=== PATIENT | female | born 1940 | race Caucasian/White ===

== ENCOUNTER 2018-07-05 11:44 | Outpatient (CLI) | payer MEDICARE, BC | END 2018-07-05 11:45 | disposition home or self-care (01) | LOC: BICRAD 11:44 | PROVIDERS: ATTEND Family Medicine | DX: I13.10 Hypertensive heart and chronic kidney disease without heart failure, with stage 1 through stage 4 chronic kidney disease, or unspecified chronic kidney disease (principal); E11.22 Type 2 diabetes mellitus with diabetic chronic kidney disease; N18.3 Chronic kidney disease, stage 3 (moderate); D63.1 Anemia in chronic kidney disease; I25.10 Atherosclerotic heart disease of native coronary artery without angina pectoris; E78.5 Hyperlipidemia, unspecified; N39.0 Urinary tract infection, site not specified; M13.811 Other specified arthritis, right shoulder; M75.91 Shoulder lesion, unspecified, right shoulder ==

== ENCOUNTER 2020-03-08 13:31 | Inpatient (IN) | payer MEDICARE, BC ==
[~2020-03-08 13:31] MED LIST: Lidocaine 1% PF 5 ML VIAL ONE; Ondansetron PF 4 MG/2 ML Vial ONE; PROPOFOL 200 MG/20 ML VIAL ONE
[2020-03-08] MEDS ORDERED: Cefepime 2 GM VIAL ONE (14:10)
--- NOTE | 2020-03-08 14:14 | RAD ---
EXAM: Portable chest PROVIDED CLINICAL HISTORY: Fever COMPARISON: 05/21/2015 FINDINGS: Heart appears mildly enlarged. Median sternotomy changes are seen. No focal consolidation, pleural fl uid or pneumothorax evident. IMPRESSION: No evidence for an acute cardiopulmonary process.
[2020-03-08] MEDS ORDERED: Vancomycin HCl 1.75 GM in Sodium Chloride 0.9% 500 ML IVPB SCH (14:15)
[2020-03-08 14:16] LABS: #Lymphocytes 0.3 thou/uL (1.20-3.40); #Monocytes 0.5 thou/uL (0.11-0.59); #Neutrophils 4.8 thou/uL (1.40-6.50); %Basophils 0.1 % (0.0-1.0); %Eosinophils 0.4 % (0.0-10.0); %Lymphocytes 5.8 % (21.0-51.0); %Monocytes 8.4 % (0.0-10.0); %Neutrophils 85.3 % (42.0-75.0); Hemoglobin 9.9 g/dL (12.0-16.0); Mean Corpuscular HGB CONC 34.3 g/dL (32.0-36.0); Mean Corpuscular Hemoglobin 33.6 pg (27.0-31.0); Mean Corpuscular Volume 97.8 fL (78.0-98.0); Mean Platelet Volume 8.9 fL (7.4-10.4); Platelet Count 33 thou/uL (130-400); RBC Distribution Width 13.6 % (11.5-14.5); Red Blood Cell (RBC) Count 2.94 mill/uL (4.20-5.40); White Blood Cell (WBC) Count 5.6 thou/uL (4.8-10.8)
[2020-03-08 14:38] LABS: ALT (SGPT) 50 U/L (8-55); AST (SGOT) 77 U/L (5-34); Albumin 3.4 g/dL (3.4-4.8); Alkaline Phosphatase 205 U/L (40-110); Anion Gap 13 mmol/L (10-20); BUN (Urea Nitrogen) 39 mg/dL (9.8-20.1); CK (CPK) 208 U/L (29-168); Calc. Creatinine Clearance 0 mL/min (70-130); Calcium 8.1 mg/dL (7.8-10.44); Carbon Dioxide 20 mmol/L (23-31); Chloride 109 mmol/L (98-107); Estimated GFR-MDRD 27; Globulin 3.1 g/dL (2.4-3.5); Glucose 96 mg/dL (83-110); Potassium 3.9 mmol/L (3.5-5.1); Protein, Total 6.5 g/dL (6.0-8.3); Sodium 138 mmol/L (136-145)
[2020-03-08 14:57] LABS: CKMB 2.1 ng/mL (0-6.6)
[2020-03-08 15:54] LABS: Bacteria/HPF None Seen HPF (None Seen); Bilirubin Negative (Negative); Blood, Urine Negative (Negative); Clarity Clear (Clear); Glucose, Urine (Dipstick) Normal (Negative); Leukocyte Negative Leu/uL (Negative); Nitrite Negative (Negative); Protein, Urine (Dipstick) 30 mg/dL (Neg-Trace); RBC/HPF 0-3 HPF (0-3); Squamous Epithelial 0-3 HPF (0-3); WBC/HPF 0-3 HPF (0-3)
--- NOTE | 2020-03-08 16:11 | CT ---
CT abdomen and pelvis noncontrast HISTORY: Right flank pain. FINDINGS: There is [id number] distention of the right renal collecting system and ureter to the level of the distal ureter where a 0.2 cm calculus is present, favored to be within the ureter. Urinary bladder is incompletely distended without stone. A 0.4 cm calculus is present within the mildly distended right renal pelvis. Left kidney is surgically absent. Parenchymal scarring is present at the right posterior medial lung base. Old right posterior rib frac tures evident. Lack of contrast limits evaluation for other abnormalities. Liver has a nodular contour. Spleen measu res up to 15.7 cm in length. A subtle low-density lesion within the posterior aspect of the spleen is 1.2 cm greatest diameter. Likely represents a hematoma. There is prominent calcification throughout the arterial structures. A 1.7 cm partially exophytic hyp erdense cyst projects from the inferior pole of the right kidney. The urinary bladder and uterus are somewhat low-lying within the pelvis. The inferior most image show s a homogeneous oval well-circumscribed structure measuring up to 7.3 cm x 4.1 cm. Hounsfield units slightly greater than that of water. It is favored to represent a prolapsed uterus over a labial cyst . IMPRESSION : Partial obstruction at a 2 mm distal right ureteral calculus. Additional nonobstructing right renal c alculus. Surgical absence of the left kidney. Cirrhotic appearance of the liver with moderate splenomegaly. Prominent atherosclerosis. Uterine prolapse.
[2020-03-08] MEDS ORDERED: cefTRIAXone Sodium 1,000 MG in Syringe 0 ML IVPB SCH (17:45)
[2020-03-08] MEDS ORDERED: Morphine 2 MG/ML SYRINGE SLOW IVP PRN (17:45)
--- NOTE | 2020-03-08 17:47 | PDOC.HHP ---
Hospitalist HPI - History of Present Illness fever, abd pain History of Present Illness: THis is a 79 year old female with past medical history of hypertension, hyperlipidemia, diabetes, CAD s/p CABG who presented to the emergency room with fever and rigors. Patient states her symptoms started right after she ate breakfast. She stated that she was shaking for unknown period of time and felt hot. She also had an acute episode of RLQ pain that radiated to her groin area , but does not remember how long it lasted for. She states the pain is intermittent. SHe reported a burning sensation when she urinated. Patient states she has a history of uterine prolapse and had a pessary in the past but it was removed in 2018 due to her having bleeding everytime they changed it. She reports difficulty in getting a good urine stream out. She denies nausea vomiting. SHe denies runny nose, sore throat, cough, chest pain, shortness of breath. ED Course: The patient presented with a temperature of 102. Her blood pressure was 130 systolic and she was not tachycardic. She had a CT abdomen which showed a 2mm kidney stone partially obstructed with moderate distension of the renal collecting system and ureter. EKG showed atrial fibrillation. Troponin was indeterminate. Patient received 1L normal saline, IV vancomycin, IV maxipime. Patient states her abdominal pain has resolved and she wants to go home. Hospitalist ROS - Review of Systems Constitutional: reports: fever, chills, sweats Respiratory: denies: cough, dry, shortness of breath Cardiovascular: denies: chest pain, palpitations, orthopnea Gastrointestinal: reports: abdominal pain. denies: nausea, vomiting Hospitalist History - Past Medical History Cardiac: reports: CAD (s/p CABG) - Past Surgical History Past Surgical History: reports: Cholecystectomy Other Surgical History: right knee surgery Triple bypass - Family History Other Family History: No family history of kidney stones - Social History Smoking Status: Never smoker Alcohol: reports: None Drugs: reports: none - Exam General Appearance: NAD, awake alert Eye: PERRL, anicteric sclera ENT: normocephalic atraumatic, no oropharyngeal lesions Neck: supple, no JVD Heart: RRR, no murmur, no gallops, no rubs Respiratory: CTAB, no wheezes, no rales, no ronchi Gastrointestinal: soft, non-tender, non-distended, normal bowel sounds Gastrointestinal - other findings: no CVA tenderness Extremities: no edema Skin: normal turgor, no lesions, no rashes Neurological: cranial nerve grossly intact, normal sensation to touch, no weakness, no new deficit Musculoskeletal: normal tone, normal strength, no muscle wasting Psychiatric: normal affect, normal behavior, A&O x 3, oriented to person Hospitalist Results - Labs Result Diagrams: 03/08/20 13:51 03/08/20 13:51 Lab results: WBC 5.6 thou/uL (4.8-10.8) 03/08/20 13:51 Hgb 9.9 g/dL (12.0-16.0) L 03/08/20 13:51 Hct 28.7 % (36.0-47.0) L 03/08/20 13:51 MCV 97.8 fL (78.0-98.0) 03/08/20 13:51 Plt Count 33 thou/uL (130-400) L 03/08/20 13:51 Neutrophils % 85.3 % (42.0-75.0) H 03/08/20 13:51 Sodium 138 mmol/L (136-145) 03/08/20 13:51 Potassium 3.9 mmol/L (3.5-5.1) 03/08/20 13:51 Chloride 109 mmol/L (98-107) H 03/08/20 13:51 Carbon Dioxide 20 mmol/L (23-31) L 03/08/20 13:51 BUN 39 mg/dL (9.8-20.1) H 03/08/20 13:51 Creatinine 1.84 mg/dL (0.6-1.1) H 03/08/20 13:51 Glucose 96 mg/dL (83-110) 03/08/20 13:51 Lactic Acid 1.7 mmol/L (0.5-2.2) 03/08/20 13:51 Calcium 8.1 mg/dL (7.8-10.44) 03/08/20 13:51 Total Bilirubin 3.0 mg/dL (0.2-1.2) H 03/08/20 13:51 AST 77 U/L (5-34) H 03/08/20 13:51 ALT 50 U/L (8-55) 03/08/20 13:51 Alkaline Phosphatase 205 U/L (40-110) H 03/08/20 13:51 Creatine Kinase 208 U/L (29-168) H 03/08/20 13:51 CK-MB (CK-2) 2.1 ng/mL (0-6.6) 03/08/20 13:51 Troponin I 0.029 ng/mL (< 0.028) H 03/08/20 13:51 Serum Total Protein 6.5 g/dL (6.0-8.3) 03/08/20 13:51 Albumin 3.4 g/dL (3.4-4.8) 03/08/20 13:51 Urine Ketones Negative mg/dL (Negative) 03/08/20 15:40 Urine Blood Negative (Negative) 03/08/20 15:40 Urine Nitrite Negative (Negative) 03/08/20 15:40 Ur Leukocyte Esterase Negative Keven/uL (Negative) 03/08/20 15:40 Urine RBC 0-3 HPF (0-3) 03/08/20 15:40 Urine WBC 0-3 HPF (0-3) 03/08/20 15:40 Ur Squamous Epith Cells 0-3 HPF (0-3) 03/08/20 15:40 Urine Bacteria None Seen HPF (None Seen) 03/08/20 15:40 - EKG Interpretation EKG: atrial fibrillation Hospitalist H&P A/P - Plan Plan: Chest X Ray: no acute process CT abdomen: partial obstruction 2 mm distal right ureteral calculus. This is a 79 year old female with past medical history of CAD s/p CABG, hypertension, who presents to the ER with fever, rigors and abdominal pain, found to have a kidney stone with hydronephrosis Fever secondary to partially obstructed kidney stone with hydronephrosis - had temp of 102, not tachycardic and no WBC but did have rigors, suspicious for bacteremia - blood cultures ordered. UA unremarkable, will repeat UA and urine culture. Chest X Ray normal - sp vanc and maxipime in the ED - with continue with cefepime 2 grams q12 - urology consult. KEep NPO for now for possible stent placement JANEY - creatinine up to 1.8 - will order IV fluids Hypertension - hold meds for now Anemia - Hb 9, check B12/folate in the am DVT prophylaxis: will hold for now Code status: full code
[2020-03-08 18:11] LABS: Troponin I 0.042 ng/mL (< 0.028)
[2020-03-08] MEDS ORDERED: Iothalamate Meglumine 60% 30 ML VIAL FS ONE (18:22)
[2020-03-08] MEDS ORDERED: Fentanyl 100 MCG/2 ML VIAL ONE (18:40)
[2020-03-08] MEDS ORDERED: Ondansetron HCl/PF 4 MG/2 ML Vial IVP PRN (18:45)
--- NOTE | 2020-03-08 20:12 | CON ---
DATE OF CONSULTATION: 03/08/2020 HISTORY OF PRESENT ILLNESS: This is a patient, who I have seen in the ER at the request of Dr. Jenniffer Nelson, one of the hospitalists here. She was in good health until around 10 this morning when she developed shakes, rigors, and a subjective fever. She was brought in the ER. She had a temperature over 102.0. Her vital signs were otherwise fine. She on exam had some right lower quadrant tenderness and on questioning, she apparently has had some right lower quadrant tenderness off and on for a few days. She has had no dysuria, no gross hematuria, no nausea, no vomiting, and does not really have any flank tenderness. She has no history of stones. Because of the fever and because of the abdominal tender, she had a CAT scan done, which I reviewed. It shows a solitary right kidney with a very small right distal ureteral calculus, probably 2 mm and she does have some [id number] right hydronephrosis. She has a very small 4 mm calculus also up in the right renal pelvic area, does not look to be obstructing. She may have a splenic hematoma. She also has bladder prolapse, which she has had for years. On talking with her, she has never had stones before, she did have a left kidney removed 25 years ago by either Edd or Jono Dobbs. It was not because of cancers because of poor functioning and probably obstruction and it was related to stones. It sounds like she had a nephrostomy tube in prior to the nephrectomy. She has a history of gout. She has a history of urinary incontinence and wears diapers at home. She has good control of her bowels. Her white count was normal at 5.6, her hemoglobin was 9.9, and platelet count was low at 33. Creatinine is 1.8, CO2 is 20, lactic acid 1.7. Urinalysis was negative. She does see Dr. You Chaudhari as well as Dr. Agapito Chaudhari. It is unsure she has an old creatinines and looking through her records, she had a creatinine of 1.6 in January, 1.8 in November, 1.5 last May, 1.3 last April. Lowest creatinine she has had was 1.3 in July 2018, so this creatinine is probably up slightly. She has had blood cultures done and I asked if they cathed her for a urine culture. I do not know if they have done that or not. She has already received Maxipime and vancomycin. There was a question about doing COVID testing on her. I do not know any of that has yet been done. Her pain went away in the emergency department here. Her fever went away. Vital signs are stable, pulse is in the 70s. Good blood pressure and she was never hypertensive. She actually was talking about going home because she felt so much better. PAST MEDICAL HISTORY: She has diabetes, high blood pressure, hyperlipidemia, gout, and atrial fibrillation. PAST SURGICAL HISTORY: She has had bypass surgery. She has had her gallbladder out. She has had a left nephrectomy. She probably had a left percutaneous nephrostomy tube. She has had a right total knee replacement that was done in 2012. I find here regular medications, she takes allopurinol and she takes Lasix. She has some lower extremity edema. She also has a history of atrial fibrillation. She does not have flank tenderness. Abdomen is soft, currently nontender. She does have a prolapse of the urinary bladder, which is easily reduced. It was not distended. IMPRESSION: 1. Solitary right kidney. 2. Right hydronephrosis. 3. Probable right distal ureteral stone. 4. Fever, chills, and rigors of questionable cause, possibly urinary tract. PLAN: Plan at this time is to take her emergently to the OR for cysto, retrograde, right stent. She will be admitted to the hospital, maintained on antibiotics until her cultures come back. This was discussed with Dr. Nelson as well as with the patient. Job ID: [id number]
[2020-03-08] MEDS: Sodium Chloride 0.9% 1,000 ML IV SCH (20:46)
[2020-03-08 20:55] VITALS: BMI 31.8
[2020-03-08 21:33] LABS: Troponin I 0.044 ng/mL (< 0.028)
[2020-03-08] MEDS: Atorvastatin Calcium 20 MG TAB PO SCH (22:38)
[2020-03-08] MEDS: Ferrous Gluconate 324 MG TAB PO SCH (22:38)
[2020-03-08 23:51] LABS: Bilirubin Negative (Negative); Blood, Urine 2+ (Negative); Clarity Clear (Clear); Glucose, Urine (Dipstick) Normal (Negative); Leukocyte Negative Leu/uL (Negative); Nitrite Negative (Negative); Protein, Urine (Dipstick) 70 mg/dL (Neg-Trace); RBC/HPF Greater than 50 HPF (0-3); Squamous Epithelial 0-3 HPF (0-3); Urobilinogen Normal mg/dL (Less than 2)
[2020-03-08 23:54] LABS: Bacteria/HPF 1+ HPF (None Seen)
[2020-03-08 23:56] LABS: Urine Culture Reflex Yes Yes
[2020-03-09] MEDS: Cefepime 2 GM in Sodium Chloride 0.9% 100 ML IVPB SCH ×2 (01:28→14:18)
[2020-03-09] MEDS: Sodium Chloride 0.9% 1,000 ML IV SCH ×2 (04:37→14:14)
[2020-03-09] MEDS ORDERED: Cepastat Lozenges 1 LOZ PO PRN (05:08)
[2020-03-09 06:46] LABS: Hemoglobin 8.5 g/dL (12.0-16.0); Mean Corpuscular HGB CONC 33.9 g/dL (32.0-36.0); Mean Corpuscular Hemoglobin 33.2 pg (27.0-31.0); RBC Distribution Width 13.6 % (11.5-14.5); Red Blood Cell (RBC) Count 2.55 mill/uL (4.20-5.40); White Blood Cell (WBC) Count 3.4 thou/uL (4.8-10.8)
[2020-03-09 07:06] LABS: ALT (SGPT) 37 U/L (8-55); AST (SGOT) 48 U/L (5-34); Albumin 2.7 g/dL (3.4-4.8); Alkaline Phosphatase 147 U/L (40-110); Anion Gap 10 mmol/L (10-20); BUN (Urea Nitrogen) 41 mg/dL (9.8-20.1); Bilirubin, Total 2.7 mg/dL (0.2-1.2); Calc. Creatinine Clearance 30 mL/min (70-130); Calcium 7.5 mg/dL (7.8-10.44); Carbon Dioxide 19 mmol/L (23-31); Chloride 113 mmol/L (98-107); Estimated GFR-MDRD 24; Globulin 2.9 g/dL (2.4-3.5); Glucose 120 mg/dL (83-110); Mean Platelet Volume 8.8 fL (7.4-10.4); Platelet Count 25 thou/uL (130-400); Potassium 3.9 mmol/L (3.5-5.1); Protein, Total 5.6 g/dL (6.0-8.3); Sodium 138 mmol/L (136-145)
[2020-03-09 07:24] LABS: CKMB 1.5 ng/mL (0-6.6)
--- NOTE | 2020-03-09 08:03 | RAD ---
Retrograde ureterogram intraoperative fluoroscopy HISTORY: Ureteral obstruction. FINDINGS: Intraoperative fluoroscopy was provided for retrograde study as performed by Dr. Ornelas. Sp ot fluoroscopic images show contrast opacification of a nondilated right renal collecting system and ureter. Final image shows the upper portion of a right ureteral stent.
[2020-03-09] MEDS: Multivitamin W/ Minerals 1 TAB PO SCH (08:18)
[2020-03-09] MEDS: Ezetimibe 10 MG TAB PO SCH (08:19)
[2020-03-09] MEDS: Ferrous Gluconate 324 MG TAB PO SCH ×2 (08:19→21:14)
[2020-03-09] MEDS: Aspirin Chewable 81 MG TAB PO SCH (08:19)
[2020-03-09 10:28] LABS: SARS-CoV-2 MS2 Positive; SARS-CoV-2 N Gene Negative; SARS-CoV-2 S Gene Negative; SARS-CoV-2 orf1ab Negative
[2020-03-09 10:48] LABS: Hemoglobin 8.5 g/dL (12.0-16.0); Mean Corpuscular HGB CONC 33.6 g/dL (32.0-36.0); Mean Corpuscular Volume 98.1 fL (78.0-98.0); Mean Platelet Volume 7.9 fL (7.4-10.4); Platelet Count 24 thou/uL (130-400); RBC Distribution Width 13.6 % (11.5-14.5); Red Blood Cell (RBC) Count 2.57 mill/uL (4.20-5.40); White Blood Cell (WBC) Count 2.7 thou/uL (4.8-10.8)
--- NOTE | 2020-03-09 10:50 | OP ---
DATE OF PROCEDURE: 03/08/2020 PREOPERATIVE DIAGNOSES: Right hydronephrosis, right distal ureteral stones, solitary right kidney, possible right pyelonephritis. POSTOPERATIVE DIAGNOSES: Right hydronephrosis, right distal ureteral stones, solitary right kidney, possible right pyelonephritis. PROCEDURE PERFORMED: Cystoscopy, right retrograde, right stent placement. ANESTHESIA: General. ESTIMATED BLOOD LOSS: Minimal. FINDINGS: She had no evidence of bladder tumor, foreign body, or stone. Retrograde study showed some mild right hydronephrosis. I could not see an obvious stone, although it was only a 2 mm stone, on a CAT scan that could easily be missed. The urine draining from above the distal right ureter was not cloudy in appearance. DRAINS PLACED: 6 x 24 Polaris double-J stent without a string attached. We also placed an 18-Russian Coulter catheter. INDICATIONS: This is a 79-year-old white female, who had fevers and chills acutely at home today with some right lower quadrant pain. No nausea or vomiting. She had a normal appearing UA. White count was normal. She had a CAT scan done because of the fever and the pain that she was having that showed a solitary right kidney with [id number] right hydro and it was probably a right distal ureteral stone. Because of all these things, it was elected to take her to the OR for her cysto and a stent placement. DESCRIPTION OF PROCEDURE: After had already received her antibiotics in the emergency center, she was taken up to the operating room. She was placed in a supine position on the treatment table. PlexiPulses were placed on her lower extremities and turned on. She was given a general anesthetic and oral obturator intubation. She was placed in the dorsal lithotomy position and was sterilely prepped and draped. Cystoscopy was performed with a 22-Russian sheath, this was well lubricated, passed under direct vision through the female urethra into the urinary bladder with aid of video camera and monitor. The bladder was filled and emptied, and examined with both the 30 and the 70-degree lens. The right ureteral orifice was identified. A guidewire was fed up this and then a Pollack catheter was placed a centimeter up the side, and then, we injected about 15 mL of contrast to fill out this collecting system. The guidewire was then fed all the way up into the proximal right renal collecting system. The open-ended catheter was removed and the stent was placed over the guidewire and pushed up in place with aid of a pusher, so its proximal end coiled in the renal pelvis and its distal end coiled in the bladder when the wire was removed. At this point, the bladder was drained and the instruments were removed. A Coulter catheter was sterilely inserted. She was taken out of the dorsal lithotomy position and taken by stretcher to the recovery room. Job ID: [id number]
--- NOTE | 2020-03-09 11:22 | PDOC.HOSPP ---
- Subjective Encounter Date: 03/09/20 Encounter Time: 11:22 non-verbal Subjective: THe patient states she feels better. She has mild pain in the area of stent placement. No runny nose, SOB, cough, chest pain. Flu swab negative and COVID testing negative Patient states she sees Dr Chaudhari for CKD and had an appointment to see him Tomorrow. She reports taking lasix 40 mg at home due to peripheral edema Pt reports history of thrombocytopenia secondary to splenomegaly - Objective Vital Signs & Weight: Vital Signs (12 hours) Temp Pulse Resp BP Pulse Ox 03/09/20 09:22 98.4 F 66 18 132/74 99 03/09/20 04:45 100.2 F H 66 16 121/61 95 Weight Weight 185 lb 4.8 oz I&O: 03/08/20 03/09/20 03/10/20 06:59 06:59 06:59 Intake Total 1510 Output Total 425 Balance 1085 Result Diagrams: 03/09/20 10:33 03/09/20 06:26 Hospitalist ROS - Review of Systems Constitutional: reports: fever. denies: chills Respiratory: denies: cough, dry, shortness of breath Cardiovascular: denies: chest pain, palpitations Gastrointestinal: denies: nausea, vomiting, abdominal pain - Medication Medications: Active Medications Generic Name Dose Route Start Last Admin Trade Name Freq PRN Reason Stop Dose Admin Aspirin 81 mg 03/09/20 09:00 03/09/20 08:19 Aspirin Chewable PO 81 mg DAILY DAT Administration Atorvastatin Calcium 20 mg 03/08/20 21:00 03/08/20 22:38 Lipitor PO Not Given Q48H DAT Ezetimibe 10 mg 03/09/20 09:00 03/09/20 08:19 Zetia PO 10 mg DAILY DAT Administration Ferrous Gluconate 324 mg 03/08/20 21:00 03/09/20 08:19 Fergon PO 324 mg BID DAT Administration Sodium Chloride 1,000 mls @ 100 mls/hr 03/08/20 17:45 03/09/20 04:37 Normal Saline 0.9% IV 1,000 mls .Q10H DAT Administration Cefepime HCl 2 gm/ Sodium 100 mls @ 200 mls/hr 03/09/20 02:00 03/09/20 01:28 Chloride IVPB 100 mls 0200,1400 DAT Administration Iron/Minerals/Multivitamins 1 tab 03/09/20 09:00 03/09/20 08:18 Theragran M PO 1 tab DAILY DAT Administration Sodium Chloride 10 ml 03/08/20 21:00 03/09/20 08:19 Flush - Normal Saline IVF 10 ml Q12HR DAT Administration Throat Lozenges 1 matias 03/09/20 05:08 03/09/20 05:27 Cepastat Lozenges PO 1 matias Q2H PRN Administration Cough - Exam General Appearance: NAD, awake alert Eye: PERRL, anicteric sclera ENT: normocephalic atraumatic, no oropharyngeal lesions Neck: no JVD Heart: RRR, no murmur, no gallops, no rubs Respiratory: CTAB, no wheezes, no rales, no ronchi Gastrointestinal: soft, non-tender, non-distended, normal bowel sounds Extremities: no cyanosis, no clubbing, no edema Skin: normal turgor, no lesions, no rashes Neurological: cranial nerve grossly intact, normal sensation to touch, no focal deficits, no new deficit Hosp A/P - Plan This is a 79 year old female with past medical history of CAD s/p CABG, hypertension, who presents to the ER with fever, rigors and abdominal pain, found to have a kidney stone with hydronephrosis Fever possibly secondary to partially obstructed kidney stone with hydronephrosis - had temp of 102, not tachycardic and no WBC but did have rigors, suspicious for bacteremia. Blood culture showed 1/2 strep agalactiae, will repeat blood cultures - with continue with cefepime 2 grams q12 - urology placed a stent on 03/08, no purulence noted - respiratory viral panel negative. COVID negative - send hepatitis panel JANEY - creatinine up to 2.0 - continue IV fluids - patient reports taking lasix at home - will order IV fluids Elevated troponin - continues to trend up. Order ECHO Thrombocytopenia - platelets 25. Not on any anticoagulation. Possibly from splenomegaly - peripheral smear sent Anemia - Hb 8, B12/folate/LDH and haptoglobin ordered. HUS possibility but less likely due to chronic thrombocytopenia Transaminitis - improving. LIkely was from sepsis - will order hepatitis serology Hypertension - hold meds for now Code status: full code
[2020-03-09 11:25] LABS: Band 8 % (5-11); Eosinophils 4 % (0-10); Lymphocytes 13 % (21-51); MDiff Complete? YES; Monocytes 6 % (0-10); Neutrophil 69 % (42-75); Platelet Morphology Comment Appears Decreased; Polychromasia SLIGHT = 2-3 cells (100X) (0-2/hpf)
--- NOTE | 2020-03-09 14:39 | PRG ---
DATE OF SERVICE: 03/09/2020 I saw her last night and emergently placed a stent on the right ureter because of a solitary kidney with a distal right ureteral stone and right hydronephrosis, elevated creatinine, and possible pyelonephritis. Her urine culture, I cannot find. Her blood cultures are showing or just may be contaminant, she has a strep species in one. Because it was unclear that she had a urinary source for the fever, she has had COVID testing done and is in isolation for that, other viral testing was all negative. Through the night she has had low-grade temperatures of 100.2 to 100.6. Vital signs have been stable. Good air saturations. Discussed with her low platelet count. She says it has been that way for years and she believes it is because of an enlarged spleen. I think she has actually seen a epic cadence analyst before. She feels fine and not having any flank pain, not having abdominal pain. She is still on Maxipime. Her white count is lower today, it is 3.4 this morning, 2.7 now, hemoglobin is 8.5. Her urine is clear. Plan will be to leave her catheter in at least another day as her creatinine is still elevated at 2. It has actually gone up a little bit from what it was yesterday. This was discussed with her. Job ID: [id number]
[2020-03-09 18:06] LABS: HBCM Index 0.06 S/CO (0-0.79); HBSAg Index 0.19 S/CO (0-0.99); Hep B Surf Ag Non-Reactive S/CO (NonReactive); Hep C IgG Ab Non-Reactive (NonReactive); Hep C Index 0.08 S/CO (0-0.79); Hepatitis B Core IgM Abs Non-Reactive (NonReactive)
[2020-03-09 18:07] LABS: CKMB 2.4 ng/mL (0-6.6)
[2020-03-09 21:43] LABS: Hep A IgM AB Equivocal (NonReactive)
[2020-03-10] MEDS: Sodium Chloride 0.9% 1,000 ML IV SCH ×3 (00:55→16:44)
[2020-03-10] MEDS: Cefepime 2 GM in Sodium Chloride 0.9% 100 ML IVPB SCH (02:57)
[2020-03-10 06:20] LABS: Hemoglobin 7.9 g/dL (12.0-16.0); Mean Corpuscular Hemoglobin 33.5 pg (27.0-31.0); Mean Corpuscular Volume 98.4 fL (78.0-98.0); Mean Platelet Volume 8.6 fL (7.4-10.4); Platelet Count 22 thou/uL (130-400); RBC Distribution Width 13.6 % (11.5-14.5); Red Blood Cell (RBC) Count 2.35 mill/uL (4.20-5.40)
[2020-03-10 06:37] LABS: ALT (SGPT) 30 U/L (8-55); AST (SGOT) 44 U/L (5-34); Albumin 2.4 g/dL (3.4-4.8); Alkaline Phosphatase 129 U/L (40-110); Anion Gap 7 mmol/L (10-20); BUN (Urea Nitrogen) 37 mg/dL (9.8-20.1); Bilirubin, Total 1.9 mg/dL (0.2-1.2); Calc. Creatinine Clearance 34 mL/min (70-130); Calcium 7.3 mg/dL (7.8-10.44); Carbon Dioxide 20 mmol/L (23-31); Chloride 115 mmol/L (98-107); Estimated GFR-MDRD 27; Globulin 2.8 g/dL (2.4-3.5); Glucose 98 mg/dL (83-110); Potassium 4.1 mmol/L (3.5-5.1); Protein, Total 5.2 g/dL (6.0-8.3); Sodium 138 mmol/L (136-145)
[2020-03-10] MEDS: Ferrous Gluconate 324 MG TAB PO SCH ×2 (08:18→20:24)
[2020-03-10] MEDS: Ezetimibe 10 MG TAB PO SCH (08:19)
[2020-03-10] MEDS: Multivitamin W/ Minerals 1 TAB PO SCH (08:19)
[2020-03-10] MEDS: Aspirin Chewable 81 MG TAB PO SCH (08:19)
--- NOTE | 2020-03-10 18:29 | CON ---
DATE OF CONSULTATION: REASON FOR CONSULTATION: Pancytopenia. HISTORY OF PRESENT ILLNESS: Ms. Whittington is a 79-year-old female who presented to the emergency room with rigors and fever. She was diagnosed with a partially obstructed kidney stone and hydronephrosis. She was admitted and started on antibiotics. She has a history of chronic kidney disease and elevated LFTs secondary to BRAVO, moderate splenomegaly, and pancytopenia secondary to the splenomegaly. She is seen in our office every 6 months and has been seeing since 2016. Her last white count in September was 2, her hemoglobin is around 8.6 to 9, and her platelet count has been stable around 33. She has had no problems with bleeding in the past. She has been off her Procrit for her anemia and has declined. On this admission, she underwent an abdominal and pelvis CT, which showed a spleen measuring 15.7. There was a subtle low-density area of the spleen, measuring 1.2 cm, possibly representing a hematoma. On admission, her white count was 5.6, her hemoglobin was 9.9, and her platelet count was 33,000. Over the course of the next several days, she has dropped to a white count of 2, hemoglobin is 7.9, and platelet count of 22,000 today. She has no obvious bleeding source. She denies any chest pain. No shortness of breath. No abdominal discomfort. Dr. Armenta has seen the patient, has taken her to the OR for cystogram, retrograde stent placement. PAST MEDICAL HISTORY: 1. Pancytopenia from splenomegaly. 2. Anemia of chronic renal failure. 3. Elevated LFTs secondary to BRAVO. 4. Diabetes mellitus 2. 5. Arthritis. 6. High cholesterol. 7. History of AL. 8. Hypertension. 9. Bladder prolapse with pessary. PAST SURGICAL HISTORY: 1. Cholecystectomy. 2. Bypass surgery. 3. Knee surgery. 4. Left nephrectomy. ALLERGIES: NO KNOWN DRUG ALLERGIES. HOME MEDICATIONS: 1. Allopurinol. 2. Iron. 3. Lasix. 4. Coreg. FAMILY HISTORY: Noncontributory. SOCIAL HISTORY: , has 4 children. Lives with her child. No alcohol, tobacco, or illicit drug use. REVIEW OF SYSTEMS: A 10-point review of systems is negative except for noted in HPI. PHYSICAL EXAMINATION: VITAL SIGNS: Temperature is 98.5, pulse is 56, respiratory rate 16, BP is 172/73, and she is 96% on room air. GENERAL: A well-developed, well-nourished female, in no acute distress. HEENT: Normocephalic and atraumatic. Pupils equal and reactive to light. NECK: Supple. CV: Regular rate and rhythm. LUNGS: Clear. ABDOMEN: Soft and nontender. She does have fullness in the left upper quadrant. EXTREMITIES: No clubbing or cyanosis. SKIN: No rash. HEMATOLOGIC: No petechiae or purpura. NEUROLOGIC: Nonfocal. PERTINENT LABORATORY DATA AND X-RAYS: Current WBCs 2.0, hemoglobin 7.9, hematocrit 23.1, platelet count 22,000, 69% neutrophils, 8% bands, and 13% lymphocytes. Sodium is 138, potassium 4.1, chloride 115, CO2 is 20, BUN is 37, creatinine 1.82, calcium 7.3, bilirubin 1.9, AST is 44, ALT is 30, and alkaline phosphatase is 129. Troponin 0.069. Serum total protein 5.2, albumin 2.4, and globulin 2.8. B12 is 760 and folate is 10. Urine shows 1+ bacteria with 2+ blood. Hepatitis A is an equivocal. COVID-19 is negative. Radiology per HPI. ASSESSMENT: 1. Mibae-[id number] pancytopenia secondary to splenomegaly. 2. Right ureteral stent placement. 3. Questionable splenic hematoma. DISCUSSION: Case was discussed with Dr. Peace and Dr. Nelson. The patient has no evidence of randall bleeding; however, she does have a small area of possible hematoma in her spleen. Her platelets have dropped to 22,000. We will give a unit of platelets prior to discharge home. She has been cleared for discharge today and will continue antibiotics per Dr. Armenta. She will follow up with us tomorrow to have her CBC rechecked and we will monitor her in the outpatient setting. Thank you for the consult. Job ID: [id number]
[2020-03-10 20:13] VITALS: TEMP 98.3
[2020-03-10] MEDS: Atorvastatin Calcium 20 MG TAB PO SCH (20:24)
[2020-03-10 20:51] LABS: Hemoglobin 8.8 g/dL (12.0-16.0); Mean Corpuscular HGB CONC 34.5 g/dL (32.0-36.0); Mean Corpuscular Hemoglobin 33.7 pg (27.0-31.0); Mean Corpuscular Volume 97.6 fL (78.0-98.0); Mean Platelet Volume 9.1 fL (7.4-10.4); Platelet Count 28 thou/uL (130-400); RBC Distribution Width 13.6 % (11.5-14.5); Red Blood Cell (RBC) Count 2.62 mill/uL (4.20-5.40); White Blood Cell (WBC) Count 2.5 thou/uL (4.8-10.8)
[2020-03-10] MEDS ORDERED: Cefdinir 300 MG CAP PO SCH (21:00)
[2020-03-10 21:09] LABS: Anion Gap 12 mmol/L (10-20); BUN (Urea Nitrogen) 37 mg/dL (9.8-20.1); Calc. Creatinine Clearance 34 mL/min (70-130); Calcium 7.8 mg/dL (7.8-10.44); Carbon Dioxide 16 mmol/L (23-31); Chloride 115 mmol/L (98-107); Estimated GFR-MDRD 27; Glucose 114 mg/dL (83-110); Potassium 4.2 mmol/L (3.5-5.1); Sodium 139 mmol/L (136-145)
[2020-03-10 22:43] VITALS: BP 166/70
--- NOTE | 2020-03-11 07:06 | PRG ---
DATE OF SERVICE: 03/10/2020 SUBJECTIVE: I saw this patient this morning on rounds. She has been afebrile overnight, pulse is in the 50s to 60s, O2 sats are adequate and good blood pressure. Her microbiology shows just a group B strep in her blood. Her urine culture from March 08 has shown up now and is no growth at 24 hours. Quite possible that was obtained after she had started antibiotics. LABORATORY DATA: Her white count has gone down even lower to 2.0, hemoglobin is 7.9, platelet count still low at 22. She says these have all been like this in the past. Her creatinine is 1.8, which is what it was when she came in. It is a little bit better than it was yesterday. PHYSICAL EXAMINATION: Her vital signs, she has produced looks like a fair amount of urine this morning, although it is hard to tell with the dates. The dates may be incorrect on the urine testing. I think she could go home at any time from my standpoint. The only question is whether or not the hospitalist will let her go home with her white count dropping down as it is. It is hard to say what antibiotic she should be on as we do not have anything that is culture positive. She could certainly go home on Cipro or Bactrim from my standpoint. Anesthesia would keep her on something while the stent is in anyway. We can discontinue her Coulter. I will look at probably treating the stone next week, unless she can pass it in the interim. Job ID: [id number]
--- NOTE | 2020-03-11 07:12 | PQF ---
LOPEZ,JOHN Jason FORMERLY [facility], [facility] [id number] CLINICAL DOCUMENTATION CLARIFICATION FORM: POST DISCHARGE Addendum to original discharge summary date: ____ Late entry note date: __ DATE: 03/11/20 ATTN: [id number] Please exercise your independent, professional judgment in responding to the clarification form. Clinical indicators are provided on the bottom of this form for your review Can you please further clarify if Sepsis is ruled in or ruled out? Sepsis [ ] Ruled in diagnosis [ ] Continue to treat [ ] Resolved [ X ] Ruled out diagnosis [ ] Cannot rule out diagnosis [ ] Other diagnosis [ ] Unable to determine In addition, please specify: Present on Admission (POA): [ ] Yes [X ] No [ ] Unable to determine For continuity of documentation, please document condition throughout progress notes and discharge summary. Thank You. CLINICAL INDICATORS - SIGNS / SYMPTOMS / LABS H and P pg.1- fever, abd pain H and P pg.1- presented with a temperature of 102, Her BP was 130 systolic and she was not tachycardic H and P pg.5- Fever 2/2 partially obstructed kidney stone with hydronephrosis PH 03/09- her blood cultures are showing or just may be contaminant Hospitalist PN 03/09 pg.5Transaminitis-improving likely from sepsis Laboratory- WBC 5.6,3.4L, 2.7L, 2.0L ,2.5L H and P pg.4- JANEY Collected 03/08 Blood culture: Streptococcus agalactiae Gp B Collected 03/09 Urine culture:no growth Vital Signs 03/08: Upcd=549.6 Pulse=76 Resp=18 AI=183/51 Labs Lactic acid: 03/08=1.7 RISK FACTORS Possible right pyelonephritis- OP report pg.1 79 years old- H and P pg.1 Hydronephrosis- H and P pg.5 DM Consult pg 1 03/08 CKD PN pg 1 03/09 TREATMENTS Cystoscopy, right retrograde, right stent placement- OP report pg.1 IV fluids- MAR CT Abdomen/Pelvis 03/08 Vancomycin Hcl 1.75gm IV- MAR Ceftriaxone 1000mg IV- MAR Cefepime 2gm IV- MAR Blood culture Collected 03/08 Urine culture Collected 03/09 (This form is maintained as a part of the permanent medical record) 2014 [employer]. All Rights Reserved [email or web address]
--- NOTE | 2020-03-11 10:25 | DIS ---
DATE OF ADMISSION: 03/08/2020 DATE OF DISCHARGE: 03/10/2020 DISCHARGE DIAGNOSES: 1. Pyelonephritis from partially obstructive kidney stone with hydronephrosis. 2. Acute kidney injury. 3. Elevated troponin. 4. Thrombocytopenia. 5. Transaminitis. 6. Anemia. 7. Hypertension. 8. Possible hepatitis A infection. CONSULTATIONS: 1. Nephrology with Dr. Arnold Armenta. 2. Sabina Buchanan, PICU NURSE with Oncology. PROCEDURES: Cystoscopy with right-sided stent placement. BRIEF HISTORY OF PRESENT ILLNESS: This is a 79-year-old female with a past medical history of hypertension, who presented to the emergency room with fever and rigors. She also had reported some right lower quadrant pain that was intermittent. By the time the patient presented to the emergency room, her abdominal pain was gone. She had a CAT scan done which showed a 2 mm partially obstructing kidney stone with right-sided hydronephrosis. She was given 1 dose of cefepime and admitted for further workup. HOSPITAL COURSE: Pyelonephritis secondary to obstructed kidney stone with hydronephrosis: Urology was consulted in the emergency room and the patient underwent a cystoscopy on 03/08 with right-sided stent placement. She did have acute kidney injury with creatinine of up to 1.8. Coulter catheter was placed. Her creatinine initially worsened to 2.0, but improved to 1.7 on 03/10. Her Coulter catheter was removed with Urology permission. Her urine culture did come back normal; however, due to fever and rigors on admission, she will be treated with cefdinir for additional 5 days to complete a 7-day course of antibiotics. The patient did have espinoza virus testing done which was negative. 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 However, her platelet count had dropped to a darrian of 22. Her CT abdomen did show possible splenic infarct. For this reason, she was given a platelet transfusion due to platelet count of 22, and given the fact that Dr. Armenta will need to remove the stent at some point. Hematology was consulted with regard to whether additional workup needs to be done. They did state that they would see her in the clinic tomorrow 03/11 at 9:45 a.m. for further workup. Acute kidney injury: The patient's creatinine had increased to 2.0. She was given IV fluids and Coulter catheter and creatinine improved to 1.7 on the day of discharge. She was advised to discontinue her Lasix until she sees Dr. Chaudhari unless she has significant fluid retention. Hypertension: The patient's Lasix was held on discharge due to worsening kidney function. Transaminitis: The patient did have slightly elevated LFTs with an AST of 44, ALT of 30, and alkaline phosphatase of 129. She had a hepatitis panel sent which was equivocally positive for hepatitis A. Hep B and hep C were negative. She should have repeat LFTs done as an outpatient. DISCHARGE PHYSICAL EXAMINATION: VITAL SIGNS: Temp 98.3,HR 65, RR 24, O2 saturation 96% on room air, and blood pressure of 166/79. GENERAL: The patient is alert, awake, oriented x3. CVS: Regular rate and rhythm with no murmurs, rubs, or gallops. LUNGS: Clear to auscultation bilaterally. ABDOMEN: Positive bowel sounds, soft, nontender, nondistended. There is no CVA tenderness. EXTREMITIES: No edema. PERTINENT LABORATORY DATA: CBC 03/10: White count 2.5, hemoglobin 8.8, hematocrit 25.6, platelet count 28. BMP 03/10: Shows a creatinine of 1.79, BUN of 37, chloride 115, CO2 of 16. LFTs 03/10: AST 44, ALT 30, alkaline phosphatase 129, T bilirubin 1.9. Troponin I: 0.029, 0.042, 0.044, 0.071, 0.069. Vitamin B12: 760. Folate: 10. LDH: 199. Haptoglobin: Less than 10. COVID PCR: Negative. UA: 7 to 10 white blood cells, negative leukocyte esterase, and negative nitrite. Hepatitis panel: Equivocal hepatitis A IgM. Hepatitis B and C were negative. Blood culture 03/08: Shows 1/2 strep agalactiae. Respiratory PCR 03/08: Negative for flu and other respiratory viruses. Urine culture 03/08: Negative. Repeat blood cultures 03/09: Negative. IMAGING: Echo 03/10: EF 50% to 55%. Mild MR. Mild TR. Mild NJ. Chest x-ray 03/08: Negative. CT abdomen and pelvis 03/08: Partial obstruction at a 2 mm distal right ureteral calculus. Additional nonobstructing right renal calculus. Cirrhotic appearance of the liver with moderate splenomegaly. Uterine prolapse. Prominent atherosclerosis. DISCHARGE CONDITION: Stable. ACTIVITY: As tolerated. DIET: Heart healthy diet. DISCHARGE MEDICATIONS: New prescriptions: 1. Cefdinir 300 mg p.o. b.i.d. Discontinued medications: 1. Lasix 40 mg daily. All other home medications were resumed. DISCHARGE INSTRUCTIONS: The patient should follow up with her PCP in a week. She should follow up with Dr. Armenta in 2 weeks to have her stent removed and may remove the stone at that time if it is still there. She should follow up with Dr. Peace on 03/11 at 9:45 a.m. Consider repeat hepatitis panel testing as an outpatient given that she tested equivocally positive for hepatitis A. Job ID: [id number] MTDD
== END 2020-03-10 21:35 | disposition home or self-care (01) | DRG 660 ==
LOC: ERS 13:31 → SDC/OP 18:48 → SURG A 18:58 → T4-A 21:48
PROVIDERS: ADMIT Internal Medicine; ATTEND Internal Medicine
PROC: BT1DZZZ Fluoroscopy of Right Kidney, Ureter and Bladder (ICD-10-PCS; principal; 2020-03-08)
PROC: 0T768DZ Dilation of Right Ureter with Intraluminal Device, Via Natural or Artificial Opening Endoscopic (ICD-10-PCS; 2020-03-08)
DX: N13.6 Pyonephrosis (principal); D61.818 Other pancytopenia; B15.9 Hepatitis A without hepatic coma; N17.9 Acute kidney failure, unspecified; E11.22 Type 2 diabetes mellitus with diabetic chronic kidney disease; E78.5 Hyperlipidemia, unspecified; I25.10 Atherosclerotic heart disease of native coronary artery without angina pectoris; Z96.651 Presence of right artificial knee joint; Z20.828 Contact with and (suspected) exposure to other viral communicable diseases; M10.9 Gout, unspecified; I48.91 Unspecified atrial fibrillation; N18.9 Chronic kidney disease, unspecified; K75.81 Nonalcoholic steatohepatitis (NASH); D63.1 Anemia in chronic kidney disease; M19.90 Unspecified osteoarthritis, unspecified site; I12.9 Hypertensive chronic kidney disease with stage 1 through stage 4 chronic kidney disease, or unspecified chronic kidney disease; Z95.1 Presence of aortocoronary bypass graft; Z90.49 Acquired absence of other specified parts of digestive tract; Z88.8 Allergy status to other drugs, medicaments and biological substances; I25.2 Old myocardial infarction; Z79.899 Other long term (current) drug therapy
CPT/HCPCS: 36415; 36430; 71045; 74176; 74420; 80053; 80074; 81003; 81015; 82550; 82553; 82607; 82746; 83010; 83605; 83615; 84484; 85025; 85027; 85060; 86850; 86900; 86901; 86922; 87040; 87077; 87086; 87149; 87186; 87633; 87635; 87798; 93005; 93306; 96365; 96366; 96367; C1758; J0692; J2001; J2405; J2704; J3010; J3370; J3490; J7030; P9035; U0003

== ENCOUNTER 2020-03-13 08:49 | Day surgery (SDC) | payer MEDICARE, BC ==
[2020-03-12 14:31] VITALS: BMI 34.5
[2020-03-13 09:08] LABS: #Eosinphils 0.1 thou/uL (0.0-0.7); #Lymphocytes 0.7 thou/uL (1.20-3.40); #Monocytes 0.3 thou/uL (0.11-0.59); #Neutrophils 1.7 thou/uL (1.40-6.50); %Basophils 1.3 % (0.0-1.0); %Eosinophils 3.8 % (0.0-10.0); %Lymphocytes 23.8 % (21.0-51.0); %Monocytes 9.2 % (0.0-10.0); %Neutrophils 61.9 % (42.0-75.0); Hemoglobin 9.1 g/dL (12.0-16.0); Mean Corpuscular HGB CONC 34.4 g/dL (32.0-36.0); Mean Corpuscular Hemoglobin 34.1 pg (27.0-31.0); Mean Corpuscular Volume 99.3 fL (78.0-98.0); Mean Platelet Volume 9.3 fL (7.4-10.4); Platelet Count 38 thou/uL (130-400); Red Blood Cell (RBC) Count 2.67 mill/uL (4.20-5.40); White Blood Cell (WBC) Count 2.8 thou/uL (4.8-10.8)
[2020-03-13 09:13] LABS: INR-International Normal Ratio 1.1; Prothrombin Time 14.6 sec (12.0-14.7)
[2020-03-13] MEDS ORDERED: Sodium Chloride 0.9% 10 ML ONE (09:57)
[2020-03-13] MEDS ORDERED: Fentanyl 100 MCG/2 ML VIAL ONE (10:40)
[2020-03-13] MEDS ORDERED: Midazolam HCl 2 mg/2 ml Vial ONE (10:40)
[2020-03-13] MEDS ORDERED: Sodium Bicarbonate 2.5 MEQ/5 ML VIAL ONE (10:46)
[2020-03-13 12:21] VITALS: BP 178/72; TEMP 97.8
--- NOTE | 2020-03-13 14:03 | CT ---
CT-guided bone marrow aspiration/biopsy Conscious sedation: At least 30 minutes spent with the patient for conscious sedation. FINDINGS: After explaining the procedure and answering all questions, limited CT imaging of the pelvi s was performed with patient prone. Sterile technique, buffered local anesthesia, conscious sedation, CT guidance, and a posterior approach were used to carefully advance an 11-gauge bone biops y needle to the posterior cortex of the body. Careful manipulation to make osseous purchase with the bone biopsy needle. Position confirmed with CT. Bone marrow engaged. Blood aspirate and core specimen obtained and submitted to pathology for evaluation. Needle was removed. No evidence of complication. Patient tolerated the procedure well and was returne d to the holding area in good condition for further monitoring. IMPRESSION : Technically successful CT-guided bone marrow aspiration/biopsy. Pathology is pending.
== END 2020-03-13 13:15 | disposition home or self-care (01) ==
LOC: RAD 08:49
PROVIDERS: ATTEND Internal Medicine Hematology & Oncology
PROC: 07DR3ZX Extraction of Iliac Bone Marrow, Percutaneous Approach, Diagnostic (ICD-10-PCS; principal; 2020-03-13)
DX: D61.818 Other pancytopenia (principal); I12.9 Hypertensive chronic kidney disease with stage 1 through stage 4 chronic kidney disease, or unspecified chronic kidney disease; E11.22 Type 2 diabetes mellitus with diabetic chronic kidney disease; N18.3 Chronic kidney disease, stage 3 (moderate); D63.1 Anemia in chronic kidney disease; E61.1 Iron deficiency; K75.81 Nonalcoholic steatohepatitis (NASH); K74.69 Other cirrhosis of liver; I25.2 Old myocardial infarction; M19.90 Unspecified osteoarthritis, unspecified site; E78.00 Pure hypercholesterolemia, unspecified; E66.9 Obesity, unspecified; Z68.34 Body mass index [BMI] 34.0-34.9, adult; Z88.6 Allergy status to analgesic agent; Z79.899 Other long term (current) drug therapy
CPT/HCPCS: 20225; 36415; 77012; 85025; 85097; 85610; 85730; 88184; 88185; 88237; 88264; 88280; 88305; 88311; 88313; 88341; 88342; J2250; J3010

== ENCOUNTER 2020-03-16 07:53 | Outpatient (CLI) | payer MEDICARE, BC, OTHER ==
[2020-03-17 11:23] LABS: SARS-CoV-2 MS2 Positive; SARS-CoV-2 N Gene Negative; SARS-CoV-2 S Gene Negative; SARS-CoV-2 orf1ab Negative
== END 2020-03-16 07:54 | disposition home or self-care (01) ==
LOC: LABBT 07:53
PROVIDERS: ATTEND Urology
DX: Z01.812 Encounter for preprocedural laboratory examination (principal); Z11.59 Encounter for screening for other viral diseases; N20.1 Calculus of ureter
CPT/HCPCS: 87635; U0003

== ENCOUNTER 2020-03-18 09:29 | Day surgery (SDC) | payer MEDICARE, BC ==
[2020-03-16 15:08] VITALS: BMI 32.8
[2020-03-18] MEDS ORDERED: Fentanyl 100 MCG/2 ML VIAL ONE (14:14)
[2020-03-18] MEDS ORDERED: Famotidine/PF 20 mg/2ml Vial ONE (14:14)
[2020-03-18] MEDS ORDERED: Iopamidol 50 ML FS ONE (15:10)
[2020-03-18] MEDS ORDERED: Promethazine HCl 25 MG/ML VIAL IM PRN (15:29)
[2020-03-18] MEDS ORDERED: Promethazine HCl 25 MG/ML VIAL SLOW IVP PRN (15:29)
[2020-03-18] MEDS ORDERED: Ondansetron HCl/PF 4 MG/2 ML Vial IVP PRN (15:29)
[2020-03-18] MEDS ORDERED: PROPOFOL 200 MG/20 ML VIAL ONE (16:12)
[2020-03-18] MEDS ORDERED: EPHEDRINE 25 MG/5 ML SYRINGE ONE (16:12)
[2020-03-18] MEDS ORDERED: Metoclopramide HCl 10 MG/2 ML VIAL ONE (16:12)
[2020-03-18] MEDS ORDERED: Lidocaine 1% PF 5 ML VIAL ONE (16:12)
[2020-03-18] MEDS ORDERED: Ondansetron PF 4 MG/2 ML Vial ONE (16:12)
--- NOTE | 2020-03-18 22:31 | OP ---
DATE OF PROCEDURE: 03/18/2020 PREOPERATIVE DIAGNOSIS: Right ureteral stone, right ureteral stent. POSTOPERATIVE DIAGNOSIS: Presumably passed right ureteral stone and migrated right ureteral stent. PROCEDURES PERFORMED: Cystoscopy, right rigid ureteroscopy with stent retrieval, right retrograde pyelogram, and right stent replacement. ANESTHESIA: General. ESTIMATED BLOOD LOSS: Minimal. FINDINGS: The old stent had migrated up the ureter. This has probably occurred because of her significant pelvic prolapse. On ureteroscopy all the way up to the UPJ, she had no evidence of ureteral stone. Retrograde study showed no extravasation or obstruction. She still did have some hydronephrosis and tortuosity of the ureter, although this is just related to the migrated stent or perhaps just to her significant prolapse. I did place a new stent, it was a much longer stent 6 x 30 cm with a string attached. The distal end of the stent comes well down into her bladder even after prolapses. We will leave the stent in for a few days, take it out next week in the office via the string. DESCRIPTION OF PROCEDURE: After obtaining written and verbal consent from the patient, after receiving IV antibiotics, she was taken to the operating suite. She was placed in the supine position on the treatment table. PlexiPulses were placed on her lower extremities and turned on. She was given a general anesthetic and oral obturator intubation, placed in the dorsal lithotomy position, sterilely prepped and draped. The fluoroscopy unit was placed over her abdomen and a equity analyst was taken. Stent appeared to be in good position. Cystoscopy was performed with a 22-Lao sheath, this was well lubricated, passed under direct vision through the female urethra into the bladder. The prolapse did not allow us to see the right ureteral orifice. We had to use a fair number of rolled 4x4s to keep the prolapse up in place. At that point, we identified the right ureteral orifice and the stent was not exiting from it. A guidewire was fed up across this region and went up by the stent. We then brought in a graduated rigid ureteroscope and under direct vision, we fed a guidewire through the scope and then fed it up the right ureter to about mid ureter and this allowed us then to traverse the right ureteral orifice to the level of the stent, distal aspect of the stent. The guidewire was removed. A Nitinol basket was used to engage the distal end of the stent and removed it intact. We then repeated ureteroscopy this time not needing another guidewire, but just going adjacent to our initial safety wire and placed the ureteroscope all the way up to the area of the renal pelvis. There was dilated ureter, but there was no evidence of any stones in the ureter. At this point, we went ahead and placed a Pollack catheter over existing green guidewire, back-loaded this through the cystoscope, did a retrograde study on that side filling out the entire ureter. It was still dilated and somewhat tortuous. This may be a chronic condition, but because it was and because we had done ureteroscopy and because the stent we had found had migrated, we elected to leave another stent in. We took the longer stent we have, which is a 6 x 30 cm. It was placed over the guidewire, pushed up into place with aid of a pusher, so its proximal end coiled in the renal pelvis and its distal end coiled in the prolapsed bladder. Once the prolapsed bladder was allowed to come out of her vagina as it normally is. At this point, the instruments were removed. After, the bladder was drained. The string on the stent was cut exiting about 3 to 4 inches out of the urethral meatus. She at this point was awakened, extubated, and taken by stretcher to the recovery room. Job ID: [id number]
== END 2020-03-18 17:09 | disposition home or self-care (01) ==
LOC: SDC 09:29
PROVIDERS: ATTEND Urology
PROC: 0T768DZ Dilation of Right Ureter with Intraluminal Device, Via Natural or Artificial Opening Endoscopic (ICD-10-PCS; principal; 2020-03-18)
DX: N20.1 Calculus of ureter (principal); I12.9 Hypertensive chronic kidney disease with stage 1 through stage 4 chronic kidney disease, or unspecified chronic kidney disease; E11.22 Type 2 diabetes mellitus with diabetic chronic kidney disease; N18.4 Chronic kidney disease, stage 4 (severe); E78.5 Hyperlipidemia, unspecified; I25.10 Atherosclerotic heart disease of native coronary artery without angina pectoris; Z79.899 Other long term (current) drug therapy; Z88.6 Allergy status to analgesic agent; Z95.1 Presence of aortocoronary bypass graft
CPT/HCPCS: 76000; C1758; J0690; J2001; J2405; J2704; J2765; J3010; Q9967; S0028

== ENCOUNTER 2020-03-31 08:51 | Outpatient (CLI) | payer MEDICARE, BC ==
--- NOTE | 2020-03-31 11:22 | RAD ---
LUMBAR SPINE 2 VIEWS: Date: 03/31/2020 INDICATION: Low back pain. FINDINGS: Very prominent hypertrophic spurring is seen with prominent bridging osteophytes at multiple levels. Findings may represent DISH. Loss of disc space at L4-5 and L5-S1. Evidence of chronic compression deformity at L5 with loss of he ight. Prominent facet hypertrophy. Slight curvature to the right in the AP projection. IMPRESSION: 1. 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 2. Evidence of chronic compression deformity of L5 vertebra with loss of disc space at L4-5 and L5-S 1, and large bridging osteophytes at these levels. POS: AH
--- NOTE | 2020-03-31 11:59 | ULT ---
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 COMPARISON: Noncontrast CT of the abdomen and pelvis dated 03/08/2020. FINDINGS: There is appropriate hepatopetal flow seen within the hepatic vasculature. Overlying bowel gas limits image detail. Visualized aspects of aorta, and pancreas appear within normal limits. Visualized IVC is within curt l limits. There is nodular contour and coarse echogenic appearance of the visualized liver. No focal hepatic le nicholas is evident. Gallbladder is surgically absent. The common bile duct measures 4.6 mm. The spleen is enlarged, measuring 17.0 cm. No free fluid is evident. IMPRESSION: 1. Cirrhosis with findings of portal hypertension. 2. Appropriate hepatopetal flow. 3. Cholecystectomy. POS: BH
== END 2020-03-31 08:52 | disposition home or self-care (01) ==
LOC: BICULT 08:51
PROVIDERS: ATTEND Internal Medicine Gastroenterology
DX: M54.5 Low back pain (principal); K74.60 Unspecified cirrhosis of liver; R60.9 Edema, unspecified; D61.818 Other pancytopenia; M47.816 Spondylosis without myelopathy or radiculopathy, lumbar region; M25.78 Osteophyte, vertebrae; M43.9 Deforming dorsopathy, unspecified; Z90.89 Acquired absence of other organs
CPT/HCPCS: 72100; 76705

== ENCOUNTER 2020-04-27 09:22 | Outpatient (CLI) | payer MEDICARE, BC ==
--- NOTE | 2020-04-27 09:57 | RAD ---
Exam: 2 views lumbar spine COMPARISON: 03/31/2020 FINDINGS: 5 lumbar type vertebra with stable vertebral body height. Stable degenerative changes. Stable atherosclerosis and surgical clips. Stable mild loss of vertebral body height at L5. Stable bridging osteophytes, compatible with dish. Visualized sacrum and bony pelvis do not demonstrate any acute abnormality. IMPRESSION: No significant interval change.
== END 2020-04-27 09:23 | disposition home or self-care (01) ==
LOC: BICRAD 09:22
PROVIDERS: ATTEND Internal Medicine Nephrology
DX: E78.5 Hyperlipidemia, unspecified (principal); M10.9 Gout, unspecified; I13.10 Hypertensive heart and chronic kidney disease without heart failure, with stage 1 through stage 4 chronic kidney disease, or unspecified chronic kidney disease; E11.22 Type 2 diabetes mellitus with diabetic chronic kidney disease; N18.9 Chronic kidney disease, unspecified; R80.9 Proteinuria, unspecified; D63.1 Anemia in chronic kidney disease; N39.0 Urinary tract infection, site not specified; Z90.5 Acquired absence of kidney
CPT/HCPCS: 72100

== ENCOUNTER 2020-05-03 13:41 | Emergency (ER) | payer MEDICARE, BC ==
[2020-05-03] MEDS ORDERED: Ketorolac Tromethamine 30 MG/ML VIAL ONE (14:34)
[2020-05-03 15:50] LABS: Bacteria/HPF 3+ HPF (None Seen); Bilirubin Negative (Negative); Blood, Urine 1+ (Negative); Clarity Turbid (Clear); Glucose, Urine (Dipstick) Normal (Negative); Ketone, Urine Negative (Negative); Leukocyte 75 Leu/uL (Negative); Nitrite Negative (Negative); Protein, Urine (Dipstick) 100 mg/dL (Neg-Trace); Specific Gravity, Urine 1.019 (1.002-1.036); pH, Urine 5.5 (5.0-9.0)
[2020-05-03 16:45] LABS: #Lymphocytes 0.5 thou/uL (1.20-3.40); #Monocytes 0.4 thou/uL (0.11-0.59); #Neutrophils 3.5 thou/uL (1.40-6.50); %Basophils 0.4 % (0.0-1.0); %Eosinophils 0.9 % (0.0-10.0); %Lymphocytes 11.3 % (21.0-51.0); %Monocytes 8.9 % (0.0-10.0); %Neutrophils 78.5 % (42.0-75.0); Hemoglobin 8.2 g/dL (12.0-16.0); MDiff Complete? YES; Mean Corpuscular HGB CONC 34.3 g/dL (32.0-36.0); Mean Corpuscular Volume 96.2 fL (78.0-98.0); Mean Platelet Volume 7.1 fL (7.4-10.4); Platelet Count 43 thou/uL (130-400); RBC Distribution Width 14.1 % (11.5-14.5); Red Blood Cell (RBC) Count 2.47 mill/uL (4.20-5.40); White Blood Cell (WBC) Count 4.4 thou/uL (4.8-10.8)
[2020-05-03 17:02] LABS: ALT (SGPT) 11 U/L (8-55); AST (SGOT) 21 U/L (5-34); Albumin 2.3 g/dL (3.4-4.8); Alkaline Phosphatase 165 U/L (40-110); Anion Gap 12 mmol/L (10-20); BUN (Urea Nitrogen) 26 mg/dL (9.8-20.1); Bilirubin, Total 3.2 mg/dL (0.2-1.2); Calc. Creatinine Clearance 0 mL/min (70-130); Calcium 7.9 mg/dL (7.8-10.44); Carbon Dioxide 17 mmol/L (23-31); Chloride 105 mmol/L (98-107); Estimated GFR-MDRD 36; Globulin 3.9 g/dL (2.4-3.5); Glucose 127 mg/dL (83-110); Potassium 4.5 mmol/L (3.5-5.1); Protein, Total 6.2 g/dL (6.0-8.3); Sodium 129 mmol/L (136-145)
== END 2020-05-03 17:27 | disposition home or self-care (01) ==
LOC: ERS 13:41
DX: M54.5 Low back pain (principal); I10 Essential (primary) hypertension; E78.5 Hyperlipidemia, unspecified; M10.9 Gout, unspecified; Z79.899 Other long term (current) drug therapy
CPT/HCPCS: 36415; 51701; 80053; 81003; 81015; 85025; 87077; 87086; 87186; 96372; J1885

== ENCOUNTER 2020-07-21 08:34 | Outpatient (CLI) | payer MEDICARE, BC ==
--- NOTE | 2020-07-21 09:01 | RAD ---
XR Knee Lt 3 View: 07/21/2020 12:00 AM CLINICAL INDICATION: Left knee pain COMPARISON: None. FINDINGS: Bones: There is diffuse osteopenia. No acute fracture is evident. There is enthesopathic change off the anterior patella and tibial tuberosity. Joints: No joint capsular distention.. Soft Tissue: There are prominent vascular calcifications within the posterior soft tissues. There are vascular clips seen within the posterior medial distal left thigh and proximal left foreleg.. IMPRESSION: No acute osseous abnormality..
--- NOTE | 2020-07-21 09:02 | RAD ---
XR Femur Lt 2 View STANDARD INDICATION: Left thigh pain COMPARISON: None. FINDINGS: Bones: Diffuse osteopenia. No acute fracture or subluxation demonstrated. Soft tissues: There are moderate vascular calcifications seen involving the visualized vasculature. T here are surgical clips within the distal left thigh. Joints: There is mild osteoarthrosis of the left hip. IMPRESSION: No acute osseous abnormality.
== END 2020-07-21 08:35 | disposition home or self-care (01) ==
LOC: BICRAD 08:34
PROVIDERS: ATTEND Orthopaedic Surgery
DX: M25.562 Pain in left knee (principal); M79.652 Pain in left thigh